=== PATIENT | male | born 2000 | race African-American/Black ===

== ENCOUNTER 2021-06-19 20:51 | Emergency (ER) | payer OTHER ==
[~2021-06-19] VITALS: Ht 167.6 cm; Wt 72.8 kg
[2021-06-19 21:58] LABS: RSV AMPLIFICATION NEGATIVE (NEGATIVE)
[2021-06-19 23:45] VITALS: BP 117/58
[2021-06-19] MEDS ORDERED: ACETAMINOPHEN 325 MG TAB PO ONE (23:45)
== END 2021-06-20 00:35 | disposition home or self-care (01) ==
LOC: M ED 20:51
DX: U07.1 COVID-19 (principal)

== ENCOUNTER 2021-07-04 20:14 | Emergency (ER) | payer OTHER ==
[~2021-07-04] VITALS: Ht 167.6 cm; Wt 69.5 kg
[2021-07-04 20:16] VITALS: BP 153/77
== END 2021-07-05 00:55 | disposition left against medical advice (07) ==
LOC: M ED 20:14
DX: Z53.21 Procedure and treatment not carried out due to patient leaving prior to being seen by health care provider (principal)